=== PATIENT | male | born 1970 | race Caucasian/White ===

== ENCOUNTER → 2020-12-22 12:50 | Outpatient (CLI) | payer OTHER, SELFPAY ==
[2020-12-22] MEDS: COVID-19 VACC #1, MRNA(MOD) 100 MCG/0.5 ML VIAL IM (13:02)
== END ==
PROVIDERS: Visit Provider Internal Medicine
DX: Z23 Encounter for immunization (principal)
CPT/HCPCS: 0011A; 91301

== ENCOUNTER → 2021-01-19 12:43 | Outpatient (CLI) | payer OTHER, SELFPAY ==
[2021-01-19] MEDS: COVID-19 VACC #2, MRNA(MOD) 100 MCG/0.5 ML VIAL IM (12:58)
== END ==
PROVIDERS: Visit Provider Internal Medicine
DX: Z23 Encounter for immunization (principal)
CPT/HCPCS: 0012A; 91301

== ENCOUNTER 2021-06-10 18:30 | Emergency (ER) | payer OTHER, SELFPAY ==
[2021-06-10 18:38] VITALS: BP 140/95; PULSE 78; RESP 18; TEMP 36.8; O2SAT 98; BMI 34.0
[2021-06-10 18:58] VITALS: BP 141/97; PULSE 89; O2SAT 96
[2021-06-10 19:00] VITALS: PULSE 68; O2SAT 97
--- NOTE | 2021-06-10 19:00 | DI.CT.S_ITS ---
PROCEDURE: CT HEAD/BRAIN WO CON INDICATIONS: Trauma TECHNIQUE: Noncontrast 4.5 mm thick angled axial sections acquired from the foramen magnum to the vertex, with coronal and sagittal reformats. For radiation dose reduction, the following was used: automated exposure control, adjustment of mA and/or kV according to patient size. COMPARISON: None. FINDINGS: Image quality: Excellent. CSF spaces: Basal cisterns are patent. No extra-axial fluid collections. Ventricles are normal in size and shape. Brain: No midline shift. No intracranial masses or hemorrhage. Poole-white matter interface is normal. Skull and face: Calvarium and visualized facial bones are intact, without suspicious lesions. Sinuses: Visualized sinuses and mastoids are clear. IMPRESSION: No acute intracranial abnormality. Dictated by: Joseph Pratt M.D. on 06/10/2021 at 19:55 Approved by: Joseph Pratt M.D. on 06/10/2021 at 19:56
--- NOTE | 2021-06-10 19:00 | DI.CT.S_ITS ---
PROCEDURE: CT CERVICAL SPINE WO CON INDICATIONS: Trauma TECHNIQUE: Noncontrast 3 mm thick sections acquired from the skull base to the T4 level. Sagittal and coronal reformats were then constructed. For radiation dose reduction, the following was used: automated exposure control, adjustment of mA and/or kV according to patient size. COMPARISON: None. FINDINGS: Image quality: Excellent. Bones: No acute fractures or dislocations. Visualized superior ribs are intact. There is straightening of the cervical spine that is most likely secondary to positioning. Mild multilevel degenerative changes are seen without significant spinal canal stenosis. Soft tissues: Prevertebral soft tissues are normal in thickness. No paravertebral hematomas. No apical pneumothoraces. Mucosal thickening is seen in the left greater than right maxillary sinuses. IMPRESSION: No acute cervical spine fracture or subluxation. Dictated by: Joseph Pratt M.D. on 06/10/2021 at 19:56 Approved by: Joseph Pratt M.D. on 06/10/2021 at 19:58
--- NOTE | 2021-06-10 19:00 | DI.CT.S_ITS ---
PROCEDURE: CT CHEST ABD PEL W CON INDICATIONS: Trauma TECHNIQUE: After the administration of intravenous contrast, 5 mm thick sections acquired from the lung apices to the symphysis. 2.5 mm thick coronal and sagittal reformats were acquired. Additional 7 mm thick coronal maximum intensity projection (MIP) reformats acquired through the lungs. Optional 10-minute delayed imaging may be performed from the kidneys to the bladder. For radiation dose reduction, the following was used: automated exposure control, adjustment of mA and/or kV according to patient size. COMPARISON: None. FINDINGS: Image quality: Excellent. CHEST: Lungs: No pulmonary contusions or lacerations. A few scattered calcified granulomas are present. No acute airspace opacities. No pneumothorax or hemothorax. Central and peripheral airways appear patent and normal in caliber. Mediastinum: No mediastinal hematomas. Heart size is normal. No pericardial effusion. Thoracic aorta and pulmonary arteries demonstrate normal size and enhancement. No mediastinal or hilar adenopathy. Esophagus is normal in caliber. No hiatal hernia. Chest wall: No subcutaneous emphysema. No axillary or supraclavicular adenopathy. Thyroid appears normal. A few surgical clips are seen along the course of the left subclavian vessels. ABDOMEN: Solid organs: Liver is normal in size and enhancement, without lacerations. Gallbladder is unremarkable. Biliary system is non-dilated. Pancreas enhances normally, without transection. Spleen is normal in size and enhancement, without lacerations. No adrenal hematomas. Both kidneys enhance normally, without hydronephrosis or lacerations. Peritoneum and bowel: No free fluid or air. Unenhanced bowel loops demonstrate normal wall thickness and caliber. Normal appendix. Nodes and vessels: No retroperitoneal or mesenteric adenopathy. Aorta and inferior vena cava are normal in size and enhancement. Miscellaneous: No ventral hernias. PELVIS: Genitourinary: Bladder wall thickness is normal. Miscellaneous: No inguinal hernias or adenopathy. Bones: Pelvic ring and hip joints appear intact. No vertebral compression fractures. No displaced rib fracture. IMPRESSION: No acute osseous fracture. No solid organ injury. Dictated by: Joseph Pratt M.D. on 06/10/2021 at 19:59 Approved by: Joseph Pratt M.D. on 06/10/2021 at 20:05
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
[2021-06-10 19:15] LABS: Add Manual Diff / Slide Review NO; Basophils Absolute Auto 0 /uL (0-100); Basophils Percent Auto 0.6 % (0-2); Eosinophils Absolute Auto 0 /uL (0-450); Eosinophils Percent Auto 0.5 % (2-4); Hematocrit 49.3 % (41-53); Hemoglobin 16.6 g/dL (13.5-17.5); Lymphocytes Absolute Auto 2000 /uL (1100-4500); Lymphocytes Percent Auto 25.7 % (25-40); Mean Corpuscular HGB Conc 33.6 % (30-36); Mean Corpuscular Hemoglobin 28.2 PG (26-34); Monocytes Absolute Auto 600 /uL (0-900); Monocytes Percent Auto 7.6 % (3-14); Neutrophils Absolute Auto 5200 /uL (1500-7000); Neutrophils Percent Auto 65.6 % (50-75); Platelet Count 164 X10^3/uL (150-400); Red Blood Cell Count 5.87 X10^6/uL (4.5-5.9); Red Cell Distribution Width 13.5 % (11.6-14.8); White Blood Cell Count 7.9 X10^3/uL (4.5-11.0)
[2021-06-10 19:16] VITALS: PULSE 80; O2SAT 98
[2021-06-10 19:17] VITALS: BP 130/89
[2021-06-10 19:23] LABS: Alanine Aminotransferase 29 IU/L (<50); Albumin 4.6 g/dL (3.5-5.0); Albumin Globulin Ratio 1.6 (1.0-2.8); Alkaline Phosphatase 81 U/L (38-126); Aspartate Aminotransferase 31 IU/L (17-59); BUN Creatinine Ratio 12.9 (6-22); Bilirubin Total 0.9 mg/dL (0.2-1.3); Blood Urea Nitrogen 11 mg/dL (9-20); Calcium 9.1 mg/dL (8.4-10.2); Carbon Dioxide 25 mmol/L (22-32); Chloride 105 mmol/L (98-107); Estimated Glomerular Filt Rate > 60.0 mL/min (>60); Ethanol (ETOH) < 10 mg/dL; Globulin 2.8 g/dL (1.7-4.1); Glucose 92 mg/dL (70-100); HEMOLYSIS 16 (0-50); Lipase 71 U/L (23-300); Potassium 3.5 mmol/L (3.4-5.1); Sodium 137 mmol/L (137-145); Total Protein 7.4 g/dL (6.3-8.2)
[2021-06-10] MEDS: SODIUM CHLORIDE 0.9% 1,000 ML 150 ML IV (19:26)
[2021-06-10] MEDS: ONDANSETRON 4 MG/2 ML INJ (20:02)
[2021-06-10] MEDS: ONDANSETRON 4 MG ODT PREPACK 1 BOTTLE MISC (20:23)
[2021-06-10 20:33] VITALS: BP 133/88; PULSE 80; RESP 17; O2SAT 94
== END 2021-06-10 20:34 | disposition home or self-care (01) ==
PROVIDERS: Emergency Provider Emergency Medicine
DX: S06.0X9A Concussion with loss of consciousness of unspecified duration, initial encounter (principal); M54.2 Cervicalgia; M25.512 Pain in left shoulder; R11.0 Nausea; M54.6 Pain in thoracic spine; W12.XXXA Fall on and from scaffolding, initial encounter; Y99.0 Civilian activity done for income or pay
CPT/HCPCS: 36415; 70450; 71260; 72125; 74177; 80053; 80320; 81003; 82962; 83690; 85025; 86850; 86900; 86901; 93005; 93010; 96360; 99284; J2405; Q9967

== ENCOUNTER → 2022-02-01 15:47 | Outpatient (CLI) | payer OTHER, SELFPAY ==
--- NOTE | 2022-02-01 15:51 | DI.RAD.S_ITS ---
PROCEDURE: XR SHOULDER LT MIN 2V INDICATIONS: Unspecified sprain of left shoulder joint, subsequent encoun TECHNIQUE: 3 views of the shoulder were acquired. COMPARISON: None. FINDINGS: Bones: No fractures or dislocations. No suspicious bony lesions. Visualized ribs appear intact. Soft tissues: No suspicious soft tissue calcifications. IMPRESSION: Normal left shoulder Dictated by: Gerry Gomez M.D. on 02/01/2022 at 17:04 Approved by: Gerry Gomez M.D. on 02/01/2022 at 17:05
== END ==
PROVIDERS: Referring Provider Nurse Practitioner Family; Visit Provider Nurse Practitioner Family
DX: S43.402D Unspecified sprain of left shoulder joint, subsequent encounter (principal); X58.XXXD Exposure to other specified factors, subsequent encounter
CPT/HCPCS: 73030

== ENCOUNTER 2023-09-13 15:48 | Emergency (ER) | payer OTHER, SELFPAY ==
[2023-09-13 16:04] VITALS: BP 148/98; PULSE 112; O2SAT 97
[2023-09-13 16:13] VITALS: BP 148/98; PULSE 104; RESP 18; TEMP 36.6; O2SAT 98; BMI 34.0
[2023-09-13 16:30] VITALS: BP 129/81; PULSE 116; O2SAT 95
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
[2023-09-13 17:00] VITALS: PULSE 109; O2SAT 92
== END 2023-09-13 17:33 | disposition home or self-care (01) ==
PROVIDERS: Emergency Provider Emergency Medicine; PCP Nurse Practitioner Family
DX: S06.0X0A Concussion without loss of consciousness, initial encounter (principal); S00.01XA Abrasion of scalp, initial encounter; R40.2410 Glasgow coma scale score 13-15, unspecified time; W19.XXXA Unspecified fall, initial encounter; Y93.9 Activity, unspecified
CPT/HCPCS: 70450; 99281; 99284

== ENCOUNTER 2024-01-23 12:15 | Emergency (ER) | payer OTHER, MEDICAID, SELFPAY ==
[2024-01-23 12:17] VITALS: BP 133/90; PULSE 95; RESP 16; TEMP 37.1; O2SAT 98; BMI 34.7
--- NOTE | 2024-01-23 12:22 | DI.RAD.S_ITS ---
PROCEDURE: XR WRIST RT MIN 3V INDICATIONS: fall/pain TECHNIQUE: 4 views of the wrist were acquired. COMPARISON: [facility], , WRIST MINIMUM 3 VIEWS RIGHT, 10/21/2015, 13:34. FINDINGS: Bones: No fractures or dislocations. No suspicious bony lesions. Soft tissues: No suspicious soft tissue calcifications. IMPRESSION: No acute bony abnormality. Dictated by: Fede Boyer M.D. on 01/23/2024 at 14:15 Approved by: Fede Boyer M.D. on 01/23/2024 at 14:15
--- NOTE | 2024-01-23 12:22 | DI.RAD.S_ITS ---
PROCEDURE: XR ELBOW RT MIN 3V INDICATIONS: fall/pain TECHNIQUE: 3 views of the elbow were acquired. COMPARISON: None. FINDINGS: Bones: No fractures or dislocations. No suspicious bony lesions. Soft tissues: Possible small elbow joint effusion. No suspicious soft tissue calcifications. IMPRESSION: Possible small elbow joint effusion. No definite fracture is seen. Recommend follow-up radiograph in 7-10 days to exclude occult fracture. Dictated by: Fede Boyer M.D. on 01/23/2024 at 14:14 Approved by: Fede Boyer M.D. on 01/23/2024 at 14:15
--- NOTE | 2024-01-23 12:23 | DI.RAD.S_ITS ---
PROCEDURE: XR KNEE LT 3V INDICATIONS: fall/pain TECHNIQUE: 3 views of the knee were acquired. COMPARISON: None. FINDINGS: Bones: No fractures or dislocations. No suspicious bony lesions. Soft tissues: Small joint effusion. No suspicious soft tissue calcifications. Chondrocalcinosis. IMPRESSION: 1. No acute osseous abnormalities. Small joint effusion. 2. Chondrocalcinosis is present. Differential diagnosis includes but is not limited to hemochromatosis, hyperparathyroidism and CPPD. Dictated by: Fede Boyer M.D. on 01/23/2024 at 14:15 Approved by: Fede Boyer M.D. on 01/23/2024 at 14:16
[2024-01-23 16:29] VITALS: PULSE 77; O2SAT 92
[2024-01-23 16:30] VITALS: BP 134/84; PULSE 70; PULSE 85; O2SAT 98
--- NOTE | 2024-01-23 16:46 | PC.NURSE ---
Pt brought in from the lobby to the treatment room at 1630.
[2024-01-23] MEDS: ACETAMINOPHEN 325 MG TABLET 975 MG PO (16:55)
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
== END 2024-01-23 19:59 | disposition home or self-care (01) ==
PROVIDERS: Emergency Provider Emergency Medicine; PCP Nurse Practitioner Family
DX: S53.401A Unspecified sprain of right elbow, initial encounter (principal); S83.92XA Sprain of unspecified site of left knee, initial encounter; W01.0XXA Fall on same level from slipping, tripping and stumbling without subsequent striking against object, initial encounter
CPT/HCPCS: 73080; 73110; 73562; 99283